=== PATIENT | male | born 1970 | race Caucasian/White ===

== ENCOUNTER 2017-11-27 11:38 | Emergency (ER) | payer OTHER ==
[~2017-11-27] VITALS: Ht 167.6 cm; Wt 72.0 kg
[2017-11-27] MEDS ORDERED: BUPR100T5 PO (11:44)
[2017-11-27] MEDS ORDERED: TRAZ-184 PO (11:44)
[2017-11-27] MEDS ORDERED: [UNRECOGNIZED DRUG - OTHER] PEG (11:44)
[2017-11-27] MEDS ORDERED: GABA-531 PO (11:44)
[2017-11-27 13:09] VITALS: BP 104/63
== END 2017-11-27 13:24 | disposition home or self-care (01) ==
LOC: EMS 11:40
DX: Z76.0 Encounter for issue of repeat prescription (principal); F17.210 Nicotine dependence, cigarettes, uncomplicated
CPT/HCPCS: 99283

== ENCOUNTER 2021-09-10 05:09 | Emergency (ER) | payer OTHER ==
[~2021-09-10] VITALS: Ht 167.6 cm; Wt 58.6 kg
[~2021-09-10 05:09] MED LIST: BUPR100T5 PO; GABA-531 PO; TRAZ-184 PO; [UNRECOGNIZED DRUG - OTHER] PEG
[2021-09-10 06:01] VITALS: BP 138/82
== END 2021-09-10 07:40 | disposition home or self-care (01) ==
LOC: EMS 05:10
DX: R45.851 Suicidal ideations (principal); F17.210 Nicotine dependence, cigarettes, uncomplicated; F19.90 Other psychoactive substance use, unspecified, uncomplicated
CPT/HCPCS: 99285; Z7502